=== PATIENT | female | born 1995 | race Caucasian/White ===

== ENCOUNTER 2017-01-02 00:49 | Emergency (ER) | payer SELFPAY ==
[~2017-01-02] VITALS: Ht 152.4 cm; Wt 56.8 kg
[2017-01-02 02:30] VITALS: BP 124/63
== END 2017-01-02 02:33 | disposition home or self-care (01) ==
LOC: EMS 00:51
DX: R21 Rash and other nonspecific skin eruption (principal)
CPT/HCPCS: 99282